=== PATIENT | male | born 1955 | race Caucasian/White ===

== ENCOUNTER 2018-01-04 00:35 | Emergency (ER) | payer SELFPAY ==
[~2018-01-04] VITALS: Ht 190.5 cm; Wt 86.4 kg
[2018-01-04 00:36] VITALS: BP 143/87
[2018-01-04] MEDS ORDERED: PROPARACAINE OPHTH 0.5%, 15ML ONE (00:50)
== END 2018-01-04 01:41 | disposition home or self-care (01) ==
LOC: ED 00:45
DX: H16.131 Photokeratitis, right eye (principal); T26.12XA Burn of cornea and conjunctival sac, left eye, initial encounter; T26.11XA Burn of cornea and conjunctival sac, right eye, initial encounter; Y92.89 Other specified places as the place of occurrence of the external cause
CPT/HCPCS: 99283